=== PATIENT | male | born 1980 | race Caucasian/White ===

== ENCOUNTER 2022-08-23 09:41 | Day surgery (SDC) | payer OTHER ==
[2022-08-23 09:56] VITALS: BMI 32.1
[2022-08-23] MEDS ORDERED: MIDAZOLAM HCL 2 MG/2 ML SINGLE DOSE VIAL ONE (10:15)
[2022-08-23] MEDS ORDERED: PROPOFOL 20 ML ONE (10:15)
[2022-08-23] MEDS ORDERED: ROCURONIUM BROMIDE 50 MG/5 ML SYRINGE ONE (10:18)
[2022-08-23] MEDS ORDERED: BUPIVACAINE HCL/PF 0.5% (5MG/ML) 10 ML VIAL ONE (10:47)
[2022-08-23] MEDS ORDERED: DEXAMETHASONE SOD PHOSPHATE 10 MG/1 ML VIAL ONE (10:47)
[2022-08-23] MEDS ORDERED: ceFAZolin SODIUM 1 GM VIAL IVPB ONE ×3 (10:48→11:50)
[2022-08-23] MEDS ORDERED: ONDANSETRON 4 MG/2 ML VIAL IVPUSH PRN (13:41)
[2022-08-23] MEDS ORDERED: oxyCODONE HCL 5 MG TABLET PO PRN ×2 (13:41)
[2022-08-23] MEDS ORDERED: LACTATED RINGERS SOLUTION 1,000 ML IV SCH (13:45)
[2022-08-23 16:36] VITALS: TEMP 97
[2022-08-23 18:34] VITALS: BP 128/75; PULSE 75; RESP 20
== END 2022-08-23 17:50 | disposition home or self-care (01) ==
LOC: JER 09:41 → JASUSAT 13:23
PROVIDERS: ATTEND Orthopaedic Surgery
PROC: 0LQN0ZZ Repair Right Lower Leg Tendon, Open Approach (ICD-10-PCS; principal; 2022-08-23 17:30)
DX: S86.011A Strain of right Achilles tendon, initial encounter (principal); X58.XXXA Exposure to other specified factors, initial encounter; Y93.9 Activity, unspecified; Y92.9 Unspecified place or not applicable; Y99.9 Unspecified external cause status
CPT/HCPCS: 94760; 99285-25; J1100

== ENCOUNTER 2022-11-18 16:39 | Emergency (ER) | payer OTHER ==
[2022-11-18 16:56] VITALS: BP 134/82; PULSE 70; RESP 19; TEMP 97.9; BMI 32.8
[2022-11-18 19:24] LABS: BASO % 1.2 % (0-2.0); EOS % 4.9 % (0-4.5); HEMATOCRIT 45.5 % (35.4-49); HEMOGLOBIN 14.8 GM/dL (11.7-16.9); LYMPH % 22.9 % (8-40); MCH 28.8 pg (25.7-33.7); MCHC 32.5 g/dl (32.0-35.9); MEAN CELL VOLUME 88.6 fl (80-96); MEAN PLT VOLUME 7.2 fl (7.5-11.1); MONO % 11.4 % (3.8-10.2); NEUT % 59.6 % (42.8-82.8); PLATELET COUNT 255 10^3/uL (134-434); RBC 5.14 M/mm3 (4.00-5.60); RDW 15.7 % (11.9-15.9)
[2022-11-18 20:07] LABS: ALBUMIN 4.1 g/dl (3.4-5.0); CALCIUM 9.4 mg/dL (8.5-10.1)
[2022-11-18 20:08] LABS: BLOOD UREA NITROGEN 14.5 mg/dL (7-18)
[2022-11-18 20:11] LABS: CREATININE 1.1 mg/dL (0.55-1.3)
[2022-11-18 20:12] LABS: BILIRUBIN,TOTAL 0.4 mg/dL (0.2-1); TOT PROT 8.2 g/dl (6.4-8.2)
[2022-11-18] MEDS ORDERED: RIVAROXABAN 15 MG TABLET PO ONE (20:54)
== END 2022-11-18 22:05 | disposition home or self-care (01) ==
LOC: JER 16:39
DX: I82.411 Acute embolism and thrombosis of right femoral vein (principal)
CPT/HCPCS: 36415; 80053; 85025; 99283-25

== ENCOUNTER 2023-06-24 05:18 | Day surgery (SDC) | payer BC, OTHER ==
[2023-06-20 11:24] VITALS: BMI 33.5
[~2023-06-24 05:18] MED LIST: oxyCODONE HCL 5 MG TABLET PO PRN
[2023-06-24] MEDS ORDERED: LIDOCAINE HCL 1%, 10 MG/ML (10ML VIAL) MDV ONE (07:16)
[2023-06-24] MEDS ORDERED: HEPARIN NA (PORCINE) 5,000 UNITS/ML 1ML VIAL ONE (07:16)
[2023-06-24] MEDS ORDERED: SUCCINYLCHOLINE CHLORIDE 200 MG/10 ML SYRINGE ONE (07:33)
[2023-06-24] MEDS ORDERED: ROCURONIUM BROMIDE 50 MG/5 ML SYRINGE ONE (07:34)
[2023-06-24] MEDS ORDERED: DEXMEDETOMIDINE HCL 200 MCG/2 ML IVPB ONE (07:54)
[2023-06-24] MEDS ORDERED: ACETAMINOPHEN INJECTION 100 ML IVPB ONE (07:54)
[2023-06-24] MEDS ORDERED: MIDAZOLAM HCL 2 MG/2 ML SINGLE DOSE VIAL ONE (07:59)
[2023-06-24] MEDS ORDERED: ceFAZolin SODIUM 1 GM VIAL IVPB ONE (08:21)
[2023-06-24] MEDS ORDERED: PROPOFOL 40 ML ONE (08:25)
[2023-06-24] MEDS ORDERED: LIDOCAINE HCL 1%, 10 MG/ML (50 mL VIAL) INF ONE (08:26)
[2023-06-24] MEDS ORDERED: ONDANSETRON 4 MG/2 ML VIAL ONE (08:32)
[2023-06-24] MEDS ORDERED: ceFAZolin SODIUM 1 GM VIAL ONE ×2 (08:32)
[2023-06-24] MEDS ORDERED: GLYCOPYRROLATE 0.2 MG/1 ML VIAL ONE (09:02)
[2023-06-24 11:04] VITALS: RESP 18; TEMP 98.5
[2023-06-24 12:17] VITALS: BP 111/60; PULSE 62
== END 2023-06-24 12:00 | disposition home or self-care (01) ==
LOC: JASU-SURG 05:18
PROVIDERS: ATTEND Surgery Vascular Surgery
PROC: B51BZZZ Fluoroscopy of Right Lower Extremity Veins (ICD-10-PCS; principal; 2023-06-24 08:00)
DX: I82.511 Chronic embolism and thrombosis of right femoral vein (principal); Z79.01 Long term (current) use of anticoagulants; I82.401 Acute embolism and thrombosis of unspecified deep veins of right lower extremity
CPT/HCPCS: 36012; 37187; 75820; C1887; 76000-TC-FY; 93005; 93010; 94760; J1644